=== PATIENT | female | born 1940 | race Caucasian/White ===

== ENCOUNTER 2020-04-06 07:00 | Day surgery (SDC) | payer OTHER ==
[~2020-04-06] VITALS: Ht 154.9 cm; Wt 99.1 kg
[~2020-04-06 07:00] MED LIST: ALBU90OI INH; ASPI325EC PO; B COMPLEX FORM0.4 MG PO; CHOL10002; Coq-10100 MG PO; DYAZIDE 37.5-21 EACH PO; Dyazide 37.5-21 EACH; FLUT.05NI; Flovent Diskus50 MCG; HAIR, SKIN AND1 EAC1; LIVALO2 MG PO; MAG-OXIDE200 MG; QUIN10; QUIN10 PO; Super B Comple150 MG; Vitamin D2000 UNIT PO
== END 2020-04-06 09:30 | disposition home or self-care (01) ==
LOC: ORSCSDS 07:00
PROVIDERS: Ophthalmology
PROC: 08RJ3JZ Replacement of Right Lens with Synthetic Substitute, Percutaneous Approach (ICD-10-PCS; principal; 2020-04-06 08:15)
DX: H25.11 Age-related nuclear cataract, right eye (principal); J45.909 Unspecified asthma, uncomplicated
CPT/HCPCS: J2001; J2250; J3010; J3301; J7040; V2632

== ENCOUNTER 2020-04-27 07:54 | Day surgery (SDC) | payer OTHER ==
[~2020-04-27] VITALS: Ht 154.9 cm; Wt 97.8 kg
[2020-04-27] MEDS ORDERED: ALEN70 PO (08:30)
== END 2020-04-27 09:40 | disposition home or self-care (01) ==
LOC: ORSCSDS 07:54
PROVIDERS: Ophthalmology
PROC: 08RK3JZ Replacement of Left Lens with Synthetic Substitute, Percutaneous Approach (ICD-10-PCS; principal; 2020-04-27 09:00)
DX: H25.12 Age-related nuclear cataract, left eye (principal); I10 Essential (primary) hypertension; J45.909 Unspecified asthma, uncomplicated; G47.33 Obstructive sleep apnea (adult) (pediatric); E66.01 Morbid (severe) obesity due to excess calories; Z68.41 Body mass index [BMI] 40.0-44.9, adult; Z79.82 Long term (current) use of aspirin; Z79.899 Other long term (current) drug therapy
CPT/HCPCS: J2001; J2250; J3010; J3301; J7040; V2632

== ENCOUNTER 2021-06-15 11:46 | Day surgery (SDC) | payer OTHER ==
[~2021-06-15] VITALS: Ht 154.9 cm; Wt 93.8 kg
[~2021-06-15 11:46] MED LIST changes: +ALEN70 PO
[2021-06-15] MEDS ORDERED: MAGCIT300 (12:02)
[2021-06-15] MEDS ORDERED: UBID10 (12:02)
[2021-06-15] MEDS ORDERED: ZINC50 M3 (12:03)
[2021-06-15] MEDS ORDERED: CENTRUM SILVER1 EAC2 (12:03)
== END 2021-06-15 13:49 | disposition home or self-care (01) ==
LOC: ORSCSDS 11:46
PROVIDERS: Internal Medicine Gastroenterology
PROC: 0DBC8ZX Excision of Ileocecal Valve, Via Natural or Artificial Opening Endoscopic, Diagnostic (ICD-10-PCS; principal; 2021-06-15 13:00)
PROC: 0DBP8ZX Excision of Rectum, Via Natural or Artificial Opening Endoscopic, Diagnostic (ICD-10-PCS; principal; 2021-06-15 13:00)
DX: Z12.11 Encounter for screening for malignant neoplasm of colon (principal); Z86.010 Personal history of colon polyps; K57.30 Diverticulosis of large intestine without perforation or abscess without bleeding; D12.0 Benign neoplasm of cecum; K62.1 Rectal polyp; I10 Essential (primary) hypertension; G47.33 Obstructive sleep apnea (adult) (pediatric); F41.9 Anxiety disorder, unspecified; E66.9 Obesity, unspecified; Z68.39 Body mass index [BMI] 39.0-39.9, adult; Z79.899 Other long term (current) drug therapy
CPT/HCPCS: 88305; J2704; J7120

== ENCOUNTER → 2023-08-15 | Outpatient (CLI) | payer OTHER ==
[~2023-08-15] MED LIST changes: +CENTRUM SILVER1 EAC2; +MAGCIT300; +UBID10; +ZINC50 M3
== END ==
LOC: LAB 14:24 → LAB SHORT 14:24
DX: L72.0 Epidermal cyst (principal)
CPT/HCPCS: 88304